=== PATIENT | male | born 1955 | race African-American/Black ===

== ENCOUNTER 2017-02-16 19:59 | Emergency (ER) | payer MEDICAID, OTHER ==
[~2017-02-16] VITALS: Ht 177.8 cm; Wt 97.1 kg
[2017-02-16] MEDS ORDERED: FUROSEMIDE20 M1 ORAL (20:08)
[2017-02-16] MEDS ORDERED: ALBUTEROL SULF8.5 GM INH (20:08)
[2017-02-16] MEDS ORDERED: LISINOPRIL5 MG ORAL (20:08)
[2017-02-16 20:12] VITALS: BP 136/95
[2017-02-16 20:32] LABS: EOSINOPHILS % (AUTO) 2.3 % (0.0-3.0); LYMPHOCYTES % (AUTO) 33.5 % (20.0-45.0); MEAN CORPUSCULAR HEMOGLOBIN 24.9 PG (27.0-31.0); MEAN CORPUSCULAR HGB CONC 31.8 G/DL (32.0-36.0); MEAN CORPUSCULAR VOLUME 78 FL (80-99); MEAN PLATELET VOLUME 8.8 FL (6.5-10.1); NEUTROPHILS % (AUTO) 48.2 % (45.0-75.0); PLATELET COUNT 215 K/UL (150-450); RED BLOOD COUNT 4.92 M/UL (4.70-6.10); RED CELL DISTRIBUTION WIDTH 16.8 % (11.6-14.8); WHITE BLOOD COUNT 5.4 K/UL (4.8-10.8)
--- NOTE | 2017-02-16 20:39 | Emergency Room Report ---
History of Present Illness General Chief Complaint: Chest Pain Source: Patient (Torres Dawkins M.D.) Present Illness HPI 61 yo M with pmhx of HTN, CAD 2 stents on ASA p/w chest pain for "a long time" but worse today. Localized to substernal area, no radiation to back or other areas, sharp in nature, gradual in onset, lasted ~1 hours, >2 episodes. Occurrs both on exertion and rest. - SOB. Denies palpitations, diaphoresis, n/v. Denies fever, chills, cough, abd pain. Denies trauma. unknown last stress test . (Torres Dawkins M.D.) Allergies: Coded Allergies: No Known Allergies (Verified , 07/04/09) Patient History Past Medical History: see triage record Past Surgical History: none Pertinent Family History: none Reviewed Nursing Documentation: PMH: Agreed, PSxH: Agreed (Torres Dawkins M.D. ) Nursing Documentation-PMH Past Medical History: No History, Except For Hx Cardiac Problems: Yes - Hyperlipidemia, 2x stent, CHF Hx Hypertension: Yes Hx Diabetes: Yes (Torres Dawkins M.D.) Review of Systems All Other Systems: negative except mentioned in HPI (Torres Dawkins M.D.) Physical Exam Vital Signs Date Time Temp Pulse Resp B/P (MAP) Pulse Ox O2 Delivery O2 Flow Rate FiO2 02/16/17 20:01 98.1 90 16 136/95 99 Room Air Sp02 EP Interpretation: reviewed, normal General Appearance: normal inspection, well appearing, no apparent distress, alert, GCS 15, non-toxic, other - middle aged male, speaking in complete sentences, nad Head: normocephalic, atraumatic Eyes: bilateral eye normal inspection, bilateral eye PERRL, bilateral eye EOMI ENT: normal ENT inspection, normal pharynx, normal voice, moist mucus membranes Neck: normal inspection, full range of motion, supple Respiratory: normal inspection, lungs clear, normal breath sounds, no respiratory distress, no retraction, no wheezing, speaking full sentences, chest symmetrical Cardiovascular #1: normal inspection, regular rate, rhythm, no edema, normal capillary refill Gastrointestinal: normal inspection, non tender, soft, non-distended, no guarding Musculoskeletal: normal inspection, back normal, normal range of motion, non- tender Neurologic: normal inspection, alert, oriented x3, responsive, motor strength/ tone normal, sensory intact, normal gait, speech normal Psychiatric: normal inspection, judgement/insight normal, memory normal Skin: normal inspection, normal color, no rash, warm/dry, well hydrated, normal turgor (Torres Dawkins M.D.) Medical Decision Making Diagnostic Impression: Primary Impression: Chest pain Qualified Codes: R07.9 - Chest pain, unspecified Additional Impressions: CHF (congestive heart failure) Qualified Codes: I50.9 - Heart failure, unspecified Cocaine abuse ER Course 61 yo M with p/w CP DDX: ACS vs. CHF vs. pneumonia vs. gastritis/GERD vs. pneumothorax Plan: IV access, obtain labs including troponin, EKG, CXR ASA, pain control with nitro / morphine Anticipate admission ER course: Patient was given asa by ems 325 mg Patient has remained on a monitor, HD stable Disposition: Patient requires admission for chest pain. risk factors / history indicating increased risk of major acute cardiac event. Patient requires admission for further workup, serial troponin, and possible stress test/cath inpatient. Please note that this Emergency Department Report was dictated using [employer] professor technology software, occasionally this can lead to erroneous entry secondary to interpretation by the dictation equipment. Laboratory Tests Test 02/16/17 20:19 02/16/17 20:30 White Blood Count 5.4 K/UL (4.8-10.8) Red Blood Count 4.92 M/UL (4.70-6.10) Hemoglobin 12.3 G/DL (14.2-18.0) L Hematocrit 38.6 % (42.0-52.0) L Mean Corpuscular Volume 78 FL (80-99) L Mean Corpuscular Hemoglobin 24.9 PG (27.0-31.0) L Mean Corpuscular Hemoglobin Concent 31.8 G/DL (32.0-36.0) L Red Cell Distribution Width 16.8 % (11.6-14.8) H Platelet Count 215 K/UL (150-450) Mean Platelet Volume 8.8 FL (6.5-10.1) Neutrophils (%) (Auto) 48.2 % (45.0-75.0) Lymphocytes (%) (Auto) 33.5 % (20.0-45.0) Monocytes (%) (Auto) 13.0 % (1.0-10.0) H Eosinophils (%) (Auto) 2.3 % (0.0-3.0) Basophils (%) (Auto) 3.0 % (0.0-2.0) H Sodium Level 138 mEQ/L (135-145) Potassium Level 4.9 mEQ/L (3.4-4.9) Chloride Level 103 mEQ/L (98-107) Carbon Dioxide Level 21 mEQ/L (20-30) Anion Gap 14 (5-15) Blood Urea Nitrogen 7 mg/dL (7-23) Creatinine 1.2 mg/dL (0.7-1.2) Estimate Glomerular Filtration Rate > 60 mL/min (>60) Glucose Level 85 mg/dL (74-106) Calcium Level 8.2 mg/dL (8.6-10.2) L Total Bilirubin 1.4 mg/dL (0.0-1.2) H Direct Bilirubin 0.5 mg/dL (0.1-0.3) H Aspartate Amino Transferase (AST) 57 U/L (5-40) H Alanine Aminotransferase (ALT) 29 U/L (3-41) Alkaline Phosphatase 239 U/L (40-129) H Total Creatine Kinase 494 U/L (38-174) H Creatine Kinase MB 7.3 ng/mL (< 6.7) H Creatine Kinase MB Relative Index 1.4 Troponin I < 0.30 ng/mL (<=0.30) Pro-B-Type Natriuretic Peptide 1365 pg/mL (0-125) H Total Protein 7.2 g/dL (6.6-8.7) Albumin 3.3 g/dL (3.5-5.2) L Globulin 3.9 g/dL Albumin/Globulin Ratio 0.8 (1.0-2.7) L Urine Opiates Screen Negative (NEGATIVE) Urine Barbiturates Screen Negative (NEGATIVE) Phencyclidine (PCP) Screen Negative (NEGATIVE) Urine Amphetamines Screen Negative (NEGATIVE) Urine Benzodiazepines Screen Negative (NEGATIVE) Urine Cocaine Screen Positive (NEGATIVE) H Urine Marijuana (THC) Screen Negative (NEGATIVE) (Torres Dawkins M.D.) ER Course Patient signed out to me. He was waiting for possible transfer. The past the a lot of time for transfer so patient will be admitted here. I contacted Dr. Quinones for admission and Dr. Thomas for orders. Pt will be transferred to [place] after all. I contact Dr. Quinones to let him know of the plan. (JEAN PINEDA M.D.) EKG Diagnostic Results Rate: normal Rhythm: NSR ST Segments: other - +PVCs ASA given to the pt in ED: No - asa given by EMS (Torres Dawkins M.D.) Rhythm Strip Diag. Results EP Interpretation: yes Rhythm: NSR, other - +PVCs (Torres Dawkins M.D.) Chest X-Ray Diagnostic Results Chest X-Ray Diagnostic Results : Chest X-Ray Ordered: Yes # of Views/Limited/Complete: 1 View Indication: Chest Pain EP Interpretation: Yes Interpretation: no consolidation, no effusion, other - +cardiomegaly Impression: Other - +cardiomegaly Interpreting ER Provider: Electronically signed by Torres Dawkins MD (Torres Dawkins M.D.) Last Vital Signs Date Time Temp Pulse Resp B/P (MAP) Pulse Ox O2 Delivery O2 Flow Rate FiO2 02/16/17 20:12 98.1 66 16 136/95 99 Room Air (Torres Dawkins M.D.) Disposition: XFER SHT-TRM HOSP Condition: Stable Torres Dawkins M.D. Feb 16, 2017 20:39 JEAN PINEDA M.D. Feb 17, 2017 00:29
[2017-02-16 20:59] LABS: ALANINE AMINOTRANSFERASE 29 U/L (3-41); ALBUMIN/GLOBULIN RATIO 0.8 (1.0-2.7); ANION GAP 14 (5-15); ASPARTATE AMINO TRANSFERASE 57 U/L (5-40); CALCIUM 8.2 mg/dL (8.6-10.2); CARBON DIOXIDE 21 mEQ/L (20-30); CHLORIDE 103 mEQ/L (98-107); CREATININE 1.2 mg/dL (0.7-1.2); GLOMERULAR FILTRATION RATE > 60 mL/min (>60); HEMOLYSIS 96; POTASSIUM 4.9 mEQ/L (3.4-4.9); SODIUM 138 mEQ/L (135-145); TOTAL PROTEIN 7.2 g/dL (6.6-8.7); TROPONIN I < 0.30 ng/mL (<=0.30)
[2017-02-16 21:10] LABS: CKMB 7.3 ng/mL (< 6.7)
[2017-02-16 21:15] VITALS: BP 130/115
[2017-02-16 21:20] LABS: BILIRUBIN,DIRECT 0.5 mg/dL (0.1-0.3)
[2017-02-16 22:15] VITALS: BP 148/90
[2017-02-16 23:15] VITALS: BP 128/81
[2017-02-17 00:15] VITALS: BP 139/104
[2017-02-17 01:00] VITALS: BP 127/88
[2017-02-17 02:33] VITALS: BP 127/88
--- NOTE | 2017-02-17 08:48 | Diagnostic Imaging Report ---
Indication: Chest pain Comparison: 07/03/09 A single view chest radiograph was obtained. Findings: Heart size is prominent. Lungs are clear. Pulmonary vascularity is appropriate. The diaphragmatic contour is smooth and costophrenic angles are sharp. No pleural effusions are identified. The bones are unremarkable. Impression: No acute findings. Cardiomegaly
== END 2017-02-17 02:33 | disposition short-term general hospital (02) ==
LOC: EDBD 19:59 → EMR 21:19 → EDBEDREQ 02-17 00:23 → EMR 02-17 02:33
DX: R07.89 Other chest pain (principal); I50.9 Heart failure, unspecified; E11.9 Type 2 diabetes mellitus without complications; F14.10 Cocaine abuse, uncomplicated; I10 Essential (primary) hypertension; E78.5 Hyperlipidemia, unspecified; Z95.5 Presence of coronary angioplasty implant and graft
CPT/HCPCS: 36415; 71010; 80053; 80300; 82248; 82550; 82553; 83880; 84484; 85025; 87081; 93005; 96374; 99285

== ENCOUNTER 2017-11-28 04:17 | Emergency (ER) | payer MEDICAID ==
[~2017-11-28] VITALS: Ht 180.3 cm; Wt 140.6 kg
[~2017-11-28 04:17] MED LIST: ALBUTEROL SULF8.5 GM INH; FUROSEMIDE20 M1 ORAL; LISINOPRIL5 MG ORAL
[2017-11-28] MEDS ORDERED: VIAGRA25 MG ORAL (04:23)
[2017-11-28] MEDS ORDERED: CATAPRES0.1 MG ORAL (04:23)
[2017-11-28 04:30] VITALS: BP 125/71
[2017-11-28] MEDS ORDERED: Solu-MEDROL 125mg Inj ONE (04:33)
[2017-11-28 04:40] LABS: APPEARANCE,URINE CLEAR; BILIRUBIN, URINE NEGATIVE (NEGATIVE); COLOR,URINE PALE YELLOW; GLUCOSE, URINE (UA) NEGATIVE (NEGATIVE); KETONES,URINE NEGATIVE (NEGATIVE); LEUKOCYTE ESTERASE ,URINE NEGATIVE (NEGATIVE); NITRITE,URINE NEGATIVE (NEGATIVE); PH,URINE 6 (4.5-8.0); PROTEIN,URINE NEGATIVE (NEGATIVE); UROBILINOGEN,URINE NORMAL MG/DL (0.0-1.0)
--- NOTE | 2017-11-28 04:40 | Emergency Room Report ---
History of Present Illness General Chief Complaint: Allergic Reaction Present Illness HPI Is a 62-year-old male with history of CHF, high blood pressure diabetes. He presents with a chief complaint of allergic reaction. He said tonight he couldn 't sleep so he took somebody else's Seroquel. Occurred about 2 hours ago. An hour ago he got up and he felt dizzy and lightheaded. He said he couldn't speak very well. Said his mouth was dry. Said his throat was swelling up. He called 911. EMS said his tongue was swollen give him Benadryl. By time he got here swelling resolved. Patient complaining of dry throat. Has slurred speech. No nausea no vomiting. No fever chills but no chest pain. Allergies: Coded Allergies: No Known Allergies (Verified , 07/04/09) Patient History Past Medical History: see triage record, old chart reviewed, DM, HTN, CAD, CHF Past Surgical History: other Pertinent Family History: none Social History: Denies: smoking Immunizations: other Reviewed Nursing Documentation: PMH: Agreed; PSxH: Agreed Nursing Documentation-PMH Hx Cardiac Problems: Yes - Hyperlipidemia, 2x stent, CHF Hx Hypertension: Yes Hx Diabetes: Yes History Of Psychiatric Problem: Yes Review of Systems Eye: Denies: eye pain, blurred vision ENT: Denies: ear pain, nose congestion, throat swelling Respiratory: Denies: cough, shortness of breath Cardiovascular: Denies: chest pain, palpitations Gastrointestinal: Denies: abdominal pain, diarrhea, nausea, vomiting Musculoskeletal: Denies: back pain, joint pain Skin: Denies: rash Neurological: Reports: dizziness; Denies: headache, numbness Endocrine: Denies: increased thirst, increased urine Hematologic/Lymphatic: Denies: easy bruising All Other Systems: negative except mentioned in HPI Physical Exam Vital Signs Date Time Temp Pulse Resp B/P (MAP) Pulse Ox O2 Delivery O2 Flow Rate FiO2 11/28/17 04:16 96 16 128/74 98 Room Air vitals normal Sp02 EP Interpretation: reviewed, normal General Appearance: well appearing, no apparent distress, alert Head: normocephalic, atraumatic Eyes: bilateral eye PERRL, bilateral eye EOMI ENT: hearing grossly normal, normal pharynx, other - no edema to the tongue. No abnormal movement. Neck: full range of motion, supple, no meningismus Respiratory: chest non-tender, lungs clear, normal breath sounds Cardiovascular #1: regular rate, rhythm, no murmur Gastrointestinal: normal bowel sounds, non tender, no mass, no organomegaly, no bruit, non-distended Musculoskeletal: back normal, gait/station normal, normal range of motion Psychiatric: mood/affect normal Skin: warm/dry Medical Decision Making Diagnostic Impression: Primary Impression: Cocaine abuse Additional Impression: Allergic reaction Qualified Codes: T78.40XA - Allergy, unspecified, initial encounter ER Course Patient with questionable allergic reaction from Seroquel. I highly doubt this because of his tongue was so swollen for it to become normal within a few minutes is unlikely. He has no respiratory issue. He is yelling demanding water and cursing here without a problem. There is no evidence of any dysarthria. 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 We'll discharge home. No evidence of CVA or TIA. Lab Results Impression labs unremarkable Rhythm Strip Diag. Results Rhythm Strip Time: 05:14 EP Interpretation: yes Rate: 93 Rhythm: NSR, no PVC's, no ectopy CT/MRI/US Diagnostic Results CT/MRI/US Diagnostic Results : Imaging Test Ordered: CT head Impression negative per radiologist Last Vital Signs Date Time Temp Pulse Resp B/P (MAP) Pulse Ox O2 Delivery O2 Flow Rate FiO2 11/28/17 04:16 96 16 128/74 98 Room Air Status: improved Disposition: HOME, SELF-CARE Condition: Stable Scripts Benztropine Mesylate* (COGENTIN*) 0.5 Mg Tablet 1 MG PO DAILY, #7 TAB Prov: JEAN PINEDA M.D. 11/28/17 Referrals: [facility],REFERR[facility] (PCP) Patient Instructions: Allergies Additional Instructions: Follow-up with your doctor in 7 days. Stop using drugs. Stop taking other people medication. Return if symptom worsen. JEAN PINEDA M.D. Nov 28, 2017 04:40
[2017-11-28 04:45] LABS: BASOPHILS % (AUTO) 1.7 % (0.0-2.0); HEMATOCRIT 42.9 % (42.0-52.0); HEMOGLOBIN 13.5 G/DL (14.2-18.0); LYMPHOCYTES % (AUTO) 36.2 % (20.0-45.0); MEAN CORPUSCULAR VOLUME 81 FL (80-99); MONOCYTES % (AUTO) 11.3 % (1.0-10.0); NEUTROPHILS % (AUTO) 48.8 % (45.0-75.0); PLATELET COUNT 178 K/UL (150-450); RED BLOOD COUNT 5.26 M/UL (4.70-6.10); RED CELL DISTRIBUTION WIDTH 13.6 % (11.6-14.8); WHITE BLOOD COUNT 4.9 K/UL (4.8-10.8)
[2017-11-28] MEDS ORDERED: Solu-MEDROL 125mg Inj IVP ONE (04:45)
[2017-11-28 04:55] LABS: ANION GAP 10 mmol/L (5-15); BLOOD UREA NITROGEN 7 mg/dL (7-18); CALCIUM 8.8 MG/DL (8.5-10.1); CARBON DIOXIDE 24 MMOL/L (21-32); CHLORIDE 106 MMOL/L (98-107); CREATININE 1.4 MG/DL (0.55-1.30); POTASSIUM 3.9 MMOL/L (3.5-5.1); SODIUM 140 MMOL/L (136-145)
[2017-11-28] MEDS ORDERED: BENZTROPINE ME0.5 MG PO (05:15)
[2017-11-28 05:28] VITALS: BP 125/71
--- NOTE | 2017-11-28 09:10 | Diagnostic Imaging Report ---
Indications: Altered mental status Technique: Spiral acquisitions obtained through the brain. Angled axial and coronal 5 x 5 mm slices were reconstructed. Total dose length product 1396.98 mGycm. CTDI vol(s) 70.38 mGy. Dose reduction achieved using automated exposure control Comparison: 11/28/2017 Findings: No acute intracranial hemorrhage or edema. No mass effect or midline shift. Normal bobo-white differentiation. Normal-sized ventricles and extra axial CSF spaces. Intact calvarium. Visualized orbits and sinuses are unremarkable. Impression: Negative The CT scanner at [facility] is accredited by the [employer] and the scans are performed using protocols designed to limit radiation exposure to as low as reasonably achievable to attain images of sufficient resolution adequate for diagnostic evaluation.
== END 2017-11-28 05:20 | disposition home or self-care (01) ==
LOC: EDBD 04:17 → EMR 04:34
DX: F14.10 Cocaine abuse, uncomplicated (principal); R47.81 Slurred speech; E11.9 Type 2 diabetes mellitus without complications; I11.0 Hypertensive heart disease with heart failure; I50.9 Heart failure, unspecified; E78.5 Hyperlipidemia, unspecified
CPT/HCPCS: 36415; 70450; 80048; 80307; 80329; 81001; 85025; 96374; 99284; J2930